=== PATIENT | male | born 1995 | race Caucasian/White ===

== ENCOUNTER 2018-05-01 10:46 | Inpatient (IN) ==
[2018-05-01 11:36] LABS: BASO# 0.03 X1000 (0.0-0.2); BASO% 0.6 % (0.0-0.8); EOS# 0.05 X1000 (0.0-0.7); HEMATOCRIT 32.9 % (42.0-52.0); HEMOGLOBIN 11.1 g/dL (14.0-18.0); LYMPH# 1.47 X1000 (1.2-3.4); LYMPH% 28.7 % (20.5-51.1); MCH 36.6 PG (27-31); MCHC 33.7 g/dL (33-37); MCV 108.6 FL (81-99); MONO# 0.53 X1000 (0.11-0.59); MONO% 10.4 % (1.7-9.3); NEUT# 3.04 X1000 (1.4-6.5); NEUT% 59.3 % (42.2-75.2); PLT 232 X1000 (130-400); RBC 3.03 XMIL (4.7-6.1); RDW 17.1 % (11.5-14.5); WBC 5.12 X1000 (4.8-10.8)
[2018-05-01 11:45] LABS: AGAP 13; ALB/GLOB RATIO 0.6; ALBUMIN 2.4 g/dL (3.5-5.0); ALKALINE PHOSPHATASE 224 U/L (32-122); BUN 5 mg/dL (8-22); CALCIUM 7.5 mg/dL (8.8-10.2); CHLORIDE 93 mmol/L (98-107); COSMO 280; CREATININE 0.3 mg/dL (0.7-1.2); ESTIMATED GFR > 60; GLUCOSE 152 mg/dL (70-104); GOT 206 U/L (10-34); GPT 57 U/L (10-44); POTASSIUM 2.8 mmol/L (3.5-5.1); SODIUM 140 mmol/L (136-145); TCO2 34 mmol/L (25-35); TOTAL BILIRUBIN 0.89 mg/dL (0.20-1.00); TOTAL PROTEIN 6.3 g/dL (6.3-8.3)
[2018-05-01] MEDS ORDERED: ZOFRAN IV ONE (13:35)
[2018-05-01] MEDS ORDERED: NS 1,000 ML IV ONE ×2 (13:35→14:39)
[2018-05-01] MEDS ORDERED: KLOR-CON PO ONE (13:54)
--- NOTE | 2018-05-01 14:37 | Diag Imaging Result Doc PS360 ---
EXAM: CHEST-PORTABLE HISTORY: couggh TECHNIQUE: Portable chest single view COMPARISON: 12/26/2017 FINDINGS: The lungs are well expanded. The heart is not enlarged. The vessels are not distended. There are no infiltrates. No effusion identified. There has been extensive surgery to the lower cervical and upper thoracic spine and there is mild scoliosis. IMPRESSION: No pneumonia midback isn't. Electronically signed by Jerardo Wilde 05/01/2018 2:35 PM
--- NOTE | 2018-05-01 14:37 | Diag Imaging Result Doc PS360 ---
EXAM: CT RENAL STONE SEARCH INDICATION: urine sediment, history of ureteral stones TECHNIQUE: This exam was performed using automated exposure control, adjustment of mA or kV according to patient size, and/or use of iterative reconstruction technique. COMPARISON: 08/01/2017 FINDINGS: There is severe diffuse hepatic steatosis. There has been a prior cholecystectomy. There is no evidence of biliary dilatation. There is extensive inflammatory stranding associated with the pancreas indicating acute pancreatitis. There is evidence of pancreatic necrosis at the tail and there is a large fluid collection measuring up to 5.8 x 3.3 cm axially associated with the tail the pancreas indicating a developing pseudocyst. An infected pseudocyst/developing pancreatic abscess cannot be excluded. There are no renal or ureteral stones and there is no hydronephrosis. The urinary bladder is nondistended and is grossly unremarkable, otherwise. There is an incidental stable fatty infiltration involving the cecum. The appendix is not identified and there may have been prior appendectomy. There are no secondary signs of appendicitis. The remainder of the GI tract is essentially unremarkable. IMPRESSION: 1.Severe acute pancreatitis with evidence of pancreatic necrosis and pseudocyst formation. An infected pseudocyst or developing abscess cannot be excluded. 2.Severe hepatic steatosis. 3.Other external/nonacute findings detailed above. Electronically signed by Real Reina 05/01/2018 2:35 PM
[2018-05-01] MEDS ORDERED: MERREM 1 GM in NS 50 ML IV ONE (14:52)
[2018-05-01 15:08] LABS: URINE SOURCE CATH
--- NOTE | 2018-05-01 15:19 | EKG Report ---
Test Performed on : 05/01/2018 11:25:13 AM Test Reason : SYNCOPE Blood Pressure : / mmHG Vent. Rate : 125 BPM Atrial Rate : 125 BPM P-R Int : 126 ms QRS Dur : 074 ms QT Int : 306 ms P-R-T Axes : 074 078 056 degrees QTc Int : 441 ms Sinus tachycardia. Otherwise normal ECG When compared with ECG of 17-APR-2018 14:10, No significant change was found Unconfirmed Result
[2018-05-01 15:23] LABS: BILIRUBIN URINE SMALL (NEGATIVE); BLOOD URINE SMALL (NEGATIVE); COLOR ORANGE; GLUCOSE URINE TRACE mg/dL (NEGATIVE); KETONE URINE NEGATIVE (NEGATIVE); LEUKOCYTES URINE MODERATE (NEGATIVE); NITRITE URINE POSITIVE (NEGATIVE); PROTEIN URINE 100 mg/dL (NEGATIVE); SP GRAVITY URINE 1.045; TURBIDITY URINE HAZY (CLEAR); UROBILINOGEN URINE 3 mg/dL (NORMAL)
[2018-05-01 15:24] LABS: UR EPITHELIAL CELLS <10 /HPF (<10); URINE BACTERIA 2+ /HPF; URINE RBC 20-40 /HPF (<10); URINE WBC TNTC /HPF (<10)
[2018-05-01 15:41] LABS: AMYLASE 17 U/L (20-200); LIPASE 19 U/L (13-60)
[2018-05-01] MEDS ORDERED: TYLENOL PO PRN (16:20)
[2018-05-01] MEDS ORDERED: MAGNESIUM SULFATE 2 GM/S.W.I. 2 GM/50 ML IVPB IV ONE (16:58)
[2018-05-01] MEDS ORDERED: ATIVAN PO PRN (17:29)
--- NOTE | 2018-05-01 17:53 | PROVIDER DOCUMENTATION ---
This chart was entered by Mady Batista Scribe, acting as scribe for Tayo Ordonez PA. HPI-General Adult - General Chief Complaint: B/P Problems Stated Complaint: HIGH BP Time Seen by Provider: 05/01/18 13:35 Source: patient, family (mother) Allergies/Adverse Reactions: Patient Allergies Allergy/AdvReac Type Severity Reaction Status Date / Time Penicillins Allergy Intermediate ITCHING Verified 04/17/18 13:45 cashews Allergy Intermediate SWELLING Uncoded 04/17/18 13:45 Home Medications: Home Medication List Medication Instructions Recorded Confirmed Last Taken Type Lorazepam [Ativan] 1 mg PO BID PRN PRN #30 tablet 08/03/17 05/01/18 05/01/18 14: 00 Rx Albuterol Sulfate [Albuterol 8.5 gm IH PRN PRN 04/17/18 05/01/18 3 Months Ago History Sulfate Hfa] ~01/17/18 Hydrocodone/Acetaminophen [[place] 1 each PO Q4H PRN PRN #30 tablet 04/18/1805/01 Unknown Rx 5-325 Tablet] Levofloxacin [Levaquin] 500 mg PO DAILY 04/18/18 05/01/18 05/01/18 13:00 History - History of Present Illness -Gen Adult Nature of Presenting Problems: 22 yowm presents to the ed with his mother. pt has been hypotensive 98/66, n/v, cough, syncope x3 and decreased oral intake. pt sts had onset of sx and is being treated for pressure ulcers at the wound clinic Location of Pain/Injury: reports: other (pressure ulcers on buttocks) Severity: reports: mild Onset/Duration: reports: 1 week ago Timing: reports: still present Context/Activities at Onset: reports: light activity Modifying Factors: improves with: nothing Associated Symptoms: reports: cough, fatigue, loss of appetite, malaise, nausea , syncope, vomiting, other (hypotensive). denies: back/neck pain, fever/chills Similar Symptoms Previously?: Yes (sts feels like past autonomic dysreflexia) Recently seen or treated by another doctor?: Yes (wound care dr) Review of Systems - Adult - REVIEW OF SYSTEMS - ADULT Constitutional: reports: fatique, weight loss, other (decreased oral intake). denies: chills, fever Eyes: reports: no symptoms reported Ears, Nose, Mouth & Throat: reports: no symptoms reported Cardiovascular: reports: syncope (x3). denies: chest pain, palpitations Respiratory: reports: see HPI, cough. denies: shortness of breath, wheezing Gastrointestinal: reports: see HPI, nausea, vomiting. denies: diarrhea Genitourinary: reports: no symptoms reported Musculoskeletal: reports: no symptoms reported Integumentary: reports: no symptoms reported Neurological: denies: dizziness/vertigo, headache/migraines, slurred speech Psychiatric: reports: no symptoms reported Endocrine: reports: no symptoms reported Hematologic/Lymphatic: reports: no symptoms reported Allergic/Immunologic: reports: no symptoms reported All Other Systems: Reviewed and Negative Past History - Adult - PAST MEDICAL HISTORY-ADULT Review of Records: reports: Old Records Reviewed, Nursing Assessment Review, Medications Reviewed, Social history reviewed & non-contributory. Major Childhood Illnesses: reports: denies history Cardiovascular: reports: denies history Respiratory: reports: asthma Gastrointestinal: reports: denies history Obstetrical/Gynecological: reports: denies history Genitourinary: reports: denies history Musculoskeletal: reports: denies history, other (paraplegic) Neurological: reports: denies history Endocrine/Immune: reports: denies history Other Conditions: reports: denies history Additional History: dysreflexia - PRIOR SURGERIES/PROCEDURES Surgical/Procedure History: reports: back/neck - PRIOR HOSPITALIZATIONS Prior Hospitalizations: reports: for similar symptoms, for other non-related - IMMUNIZATION STATUS Childhood Immunizations: See Nurse Assessment Flu Vaccine: See Nurse Assessment - FAMILY HISTORY Family History: reviewed, not pertinent - SOCIAL HISTORY Smoking: denies Substance Use: alcohol Alcohol Use Frequency: twice a week (on weekends) Number of drinks per typical drinking period:: 3-4 drinks Living Situation: family Physical Exam-General - PHYSICAL EXAM-ADULT Initial Vital Signs Reviewed: Yes - CONSTITUTIONAL General Appearance: alert, mild distress, thin. negative: appears well - EYES Eyes: PERRL/EOMI - HEAD, EARS, NOSE, MOUTH & THROAT HENMT: normal ENT inspection. negative: moist mucous membranes - NECK Neck: full range of motion, normal inspection - RESPIRATORY Respiratory: chest non-tender, lungs clear, normal breath sounds - CARDIOVASCULAR Cardiovascular: normal peripheral pulses, tachycardia (152) - GASTROINTESTINAL (ABDOMEN) Abdominal Exam: normal bowel sounds, soft - GENITOURINARY Male Genitalia: deferred, other (pt self caths/bed sores on buttocks and being tx) Rectal Exam: deferred - LYMPHATIC Lymphatic: no adenopathy - MUSCULOSKELETAL Back Exam: other (pt is parapalegic no back exam done) Extremity: normal capillary refill, pelvis stable, other (parapalegic) - SKIN Integumentary: warm/dry, pallor - NEUROLOGIC Neurologic: grossly normal - PSYCHIATRIC Psych/Mental Status: normal mood/affect, normal thought content, normal thought process, oriented x 3 Progress - PLAN OF CARE/RESULTS Progress/Plan/Lab Results: Vital Signs - 8 hr 05/01/18 10:57 Temperature 98.0 F Pulse Rate 152 H Respiratory Rate 20 Blood Pressure 98/66 O2 Sat by Pulse Oximetry 100 Laboratory Results - last 24 hr 05/01/18 05/01/18 11:00 11:00 WBC 5.12 RBC 3.03 L Hgb 11.1 L Hct 32.9 L MCV 108.6 H MCH 36.6 H MCHC 33.7 RDW Std Deviation 17.1 H Plt Count 232 MPV 9.0 Immature Gran % (Auto) 0.0 Neut % (Auto) 59.3 Lymph % (Auto) 28.7 [place] % (Auto) 10.4 H Eos % (Auto) 1.0 Baso % (Auto) 0.6 Immature Gran # (Auto) 0.00 Neut # (Auto) 3.04 Lymph # (Auto) 1.47 [place]well # (Auto) 0.53 Eos # (Auto) 0.05 Baso # (Auto) 0.03 Sodium 140 Potassium 2.8 L Chloride 93 L Carbon Dioxide 34 Anion Gap 13 BUN 5 L Creatinine 0.3 L Estimated GFR/1.73 m2 > 60 BUN/Creatinine Ratio 17 Glucose 152 H Calculated Osmolality 280 Calcium 7.5 L Total Bilirubin 0.89 AST 206 H ALT 57 H Alkaline Phosphatase 224 H Total Protein 6.3 Albumin 2.4 L Globulin 3.9 Albumin/Globulin Ratio 0.6 Orders Category Date Time Status Glucose Finger Stick [FSBS/Accucheck Result] NOW Care 05/01/18 11:31 Active Saline Loc NOW Care 05/01/18 13:35 Active CBC WITH ELECTRONIC DIFF [HEME] Stat Lab 05/01/18 11:00 Completed CMP [COMPREHENSIVE METABOLIC PANEL] [CHEM] Stat Lab 05/01/18 11:00 Completed UA NIMS W/REFLEX CULT [URINALYSIS] Stat Lab 05/01/18 13:36 Ordered 0.9% Sodium Chloride Inj [Ns] 1,000 ml Med 05/01/18 13:35 Active IV 999 mls/hr Ondansetron [Zofran] Med 05/01/18 13:35 Discontinued 4 mg IV NOW ONE Result Diagrams: 05/01/18 11:00 05/01/18 11:00 - REASSESSMENT Reassessment #1 Time Reassessed: 14:05 (pt is resting in bed) Status: unchanged Reassessment #2 Time Reassessed: 14:51 Status: unchanged Reassessment Comment: pt is still tachy Reassessment #3 Time Reassessed: 16:07 Status: improving Reassessment Comment: pt feels much better and HR is improved - EKG 1 Time of EKG reading by physician:: 15:57 EKG Read and Signed by:: Tyrone Conroy EKG Interpretation (*Must complete 3 of following elements*): Normal Rate: 107 Rhythm: sinus tachycardia Foster: normal QRS: normal AL Interval: normal ST Wave: normal - XRAY 1 XRAY: Bilateral XRAY Study: Chest (EXAM: CHEST-PORTABLE HISTORY: couggh TECHNIQUE: Portable chest single view COMPARISON: 12/26/2017 FINDINGS: The lungs are well expanded. The heart is not enlarged. The vessels are not distended. There are no infiltrates. No effusion identified. There has been extensive surgery to the lower cervical and upper thoracic spine and there is mild scoliosis. IMPRESSION: No pneumonia midback isn't. Electronically signed by Jerardo Wilde 05/01/2018 2:35 PM 05/01/18 1435 Interpreting Physician: Jerardo Wilde MD Dictated Date/Time: 05/01/18 1434 cc: Tayo Ordonez; Aguila Porter MD) - CT/MRI 1 CT Study: Kidneys (EXAM: CT RENAL STONE SEARCH INDICATION: urine sediment, history of ureteral stones TECHNIQUE: This exam was performed using automated exposure control, adjustment of mA or kV according to patient size, and/or use of iterative reconstruction technique. COMPARISON: 08/01/2017 FINDINGS: There is severe diffuse hepatic steatosis. There has been a prior cholecystectomy. There is no evidence of biliary dilatation. There is extensive inflammatory stranding associated with the pancreas indicating acute pancreatitis. There is evidence of pancreatic necrosis at the tail and there is a large fluid collection measuring up to 5.8 x 3.3 cm axially associated with the tail the pancreas indicating a developing pseudocyst. An infected pseudocyst /developing pancreatic abscess cannot be excluded. There are no renal or ureteral stones and there is no hydronephrosis. The urinary bladder is nondistended and is grossly unremarkable, otherwise. There is an incidental stable fatty infiltration involving the cecum. The appendix is not identified and there may have been prior appendectomy. There are no secondary signs of appendicitis. The remainder of the GI tract is essentially unremarkable. IMPRESSION: 1.Severe acute pancreatitis with evidence of pancreatic necrosis and pseudocyst formation. An infected pseudocyst or developing abscess cannot be excluded. 2.Severe hepatic steatosis. 3.Other external/nonacute findings detailed above. Electronically signed by Real Reina 05/01/2018 2:35 PM 05/01 1435 Interpreting Physician: Real Reina MD Dictated Date/Time: 1423 cc: Tayo Ordonez; Aguila Porter MD) - CONSULTS/PCP/HOSPITALIST Notification #1 *Consult/PCP/Hospitalist*: dr taylor Time Discussed: 14:48 Reason/Comments: phone consult Consult Disposition: Admit (start on meropenem) #2 Consult: hospitalist service Time Discussed: 15:07 Reason/Comments: pancreatitis Consult Disposition: Admit Departure - Departure Date of Disposition Decision: 05/01/18 Time of Disposition Decision: 14:56 DIAGNOSIS: Pancreatic pseudocyst, Tachycardia, Hypokalemia Acute pancreatitis Qualifiers: Pancreatitis type: alcohol induced Acute pancreatitis complication: unspecified Qualified Code(s): K85.20 - Alcohol induced acute pancreatitis without necrosis or infection Anemia Qualifiers: Anemia type: other cause Other causes of anemia: other cause, not classified Qualified Code(s): D64.89 - Other specified anemias UTI (urinary tract infection) Qualifiers: Urinary tract infection type: site unspecified Hematuria presence: without hematuria Qualified Code(s): N39.0 - Urinary tract infection, site not specified Disposition: ADMITTED INPATIENT 09 Certified Medical Emergency: Emergent Condition: Stable - Critical Care Note This patient required my direct & personal management of CC.: Yes Total Time (mins): 42 Critical Care Statement: This patient required my direct personal management to treat or rule out processes, the absence of which, could potentiallly result in sudden, clinically significant life or limb threatening deterioration. Attestation - Physician/ NEHA Attestation Patient care was provided by Advanced Practice Provider:: Yes Advanced Practice Provider:: Tayo Ordonez Advanced Practice Provider documentation review:: The Mid-level provider documentation, treatment plan and medical decision making was reviewed by the physician who agrees with all treatment and medical decision making by the MLP. The physician spent face to face time with patient:: No Advanced Practice Provider documentation review:: Supervising physician onsite and consulted in the evaluation and care of this patient. The physician did not have a face to face encounter with the patient. This chart was documented by the indicated scribe, (Mady Batista Scribe) and accurately reflects the services I performed and decisions made by me, Tayo Ordonez PA, as attested by the provider's signature.
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
[2018-05-01] MEDS: ATIVAN IV PRN (18:29)
[2018-05-01] MEDS: PROTONIX IV SCH (18:35)
[2018-05-01] MEDS: SODIUM CHLORIDE 0.9% INJ SCH (18:35)
[2018-05-01 18:36] LABS: IRON SATURATION 57 %; TIBC 100 ug/dL; TOTAL IRON 57 ug/dL (53-167); UNBOUND IRON 43 ug/dL (112-346)
[2018-05-01] MEDS: NS 1,000 ML IV SCH (18:39)
[2018-05-01 18:41] LABS: HEMOGLOBIN A1C 4.3 % (4.8-6.0)
[2018-05-01 19:33] LABS: FERRITIN 1624 ng/mL (30-400)
[2018-05-01] MEDS: LOPRESSOR IV SCH (20:21)
[2018-05-01] MEDS: POTASSIUM CHLORIDE 60 MEQ in NS 500 ML IV SCH (20:22)
[2018-05-01] MEDS: ZOFRAN IV PRN (20:23)
--- NOTE | 2018-05-01 20:56 | Diag Imaging Result Doc PS360 ---
EXAM: CT HEAD W/O CONTRAST - 05/01/2018 HISTORY: syncope; dizziness TECHNIQUE: CT head without contrast COMPARISON: None. FINDINGS: There is no evidence of intracranial hemorrhage, mass effect, midline shift, or hydrocephalus. There is no evidence of infarct, although acute infarcts may not be immediately visible. There is no evidence of skull fracture. Visualized portions of paranasal sinuses and mastoid air cells appear clear. IMPRESSION: No visible acute intracranial abnormality. No hemorrhage or mass effect. This exam was performed using automated exposure control, adjustment of mA or kV according to patient size, and/or use of iterative reconstruction technique. Electronically signed by Owen Humphreys 05/01/2018 8:54 PM
[2018-05-01] MEDS: DILAUDID IV PRN (22:21)
[2018-05-01 23:07] LABS: URINE SOURCE CATH
[2018-05-01 23:12] LABS: BILIRUBIN URINE NEGATIVE (NEGATIVE); BLOOD URINE NEGATIVE (NEGATIVE); COLOR YELLOW; GLUCOSE URINE NEGATIVE (NEGATIVE); KETONE URINE NEGATIVE (NEGATIVE); LEUKOCYTES URINE MODERATE (NEGATIVE); NITRITE URINE NEGATIVE (NEGATIVE); PROTEIN URINE NEGATIVE (NEGATIVE); SP GRAVITY URINE 1.003; TURBIDITY URINE HAZY (CLEAR); UROBILINOGEN URINE NORMAL (NORMAL)
[2018-05-01 23:13] LABS: UR EPITHELIAL CELLS >10 /HPF (<10); URINE BACTERIA NEGATIVE /HPF; URINE RBC <10 /HPF (<10); URINE WBC <10 /HPF (<10)
[2018-05-02] MEDS: ATIVAN IV PRN ×2 (00:40→16:14)
[2018-05-02] MEDS: ZOFRAN IV PRN ×2 (00:40→09:06)
[2018-05-02] MEDS: MERREM 1 GM in NS 50 ML IV SCH ×3 (00:45→16:03)
[2018-05-02] MEDS: LOPRESSOR IV SCH ×4 (02:07→22:39)
[2018-05-02] MEDS: DILAUDID IV PRN ×6 (02:07→22:39)
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
[2018-05-02] MEDS: NS 1,000 ML IV SCH ×2 (04:29→14:52)
[2018-05-02] MEDS: SODIUM CHLORIDE 0.9% INJ SCH (04:29)
[2018-05-02] MEDS: POTASSIUM CHLORIDE 60 MEQ in NS 500 ML IV SCH (04:29)
[2018-05-02] MEDS: PROTONIX IV SCH ×3 (04:29→17:39)
[2018-05-02 06:04] LABS: BASO# 0.01 X1000 (0.0-0.2); BASO% 0.2 % (0.0-0.8); EOS# 0.02 X1000 (0.0-0.7); EOS% 0.4 % (0.0-10.0); HEMATOCRIT 31.9 % (42.0-52.0); HEMOGLOBIN 10.6 g/dL (14.0-18.0); IMM GRAN# 0.02 X1000 (0.0-0.04); IMM GRAN% 0.4 % (0.0-0.5); LYMPH# 1.22 X1000 (1.2-3.4); MCH 37.1 PG (27-31); MCHC 33.2 g/dL (33-37); MCV 111.5 FL (81-99); MONO# 0.53 X1000 (0.11-0.59); MONO% 10.4 % (1.7-9.3); MPV 9.3 FL (7.4-10.4); NEUT# 3.28 X1000 (1.4-6.5); NEUT% 64.6 % (42.2-75.2); PLT 172 X1000 (130-400); RBC 2.86 XMIL (4.7-6.1); RDW 17.6 % (11.5-14.5); WBC 5.08 X1000 (4.8-10.8)
[2018-05-02 06:08] LABS: PTT 28.3 Seconds (22.3-41.8)
[2018-05-02 07:10] LABS: LYMPHS 24 % (21-51); MONO 8 % (1-9); SEGS 68 % (42-75)
--- NOTE | 2018-05-02 07:47 | GENERAL SURGERY PROGRESS NOTE ---
DATE: 05/02/2018 SUBJECTIVE: Patient seems to be doing better. He is in better spirits. OBJECTIVE: Vital Signs: Patient is currently afebrile. Heart rate in the 90s, blood pressure 115/79, O2 saturation 96%. General: No acute distress. HEENT: Normocephalic, atraumatic. Pupils equal, round, and reactive to light. Mucous membranes moist. Oropharynx benign. Neck: Supple. Trachea midline. Cardiovascular: Regular rate and rhythm. Lungs: Grossly clear. Abdomen: Difficult exam, but no distention. Extremities: Paraplegic. Skin: No signs of jaundice. Vascular: All extremities perfused. Neurologic: Paraplegic. LABORATORY: Hematocrit is 39, white blood cell count 5, and platelet count 172,000. Remainder of labs reviewed. ASSESSMENT/PLAN: A 22-year-old with severe pancreatitis with possible abscess. Severe pancreatitis. At this time, we will continue current treatment and resuscitation. We will order MRI with MRCP to evaluate his biliary tree better, and his pancreatic ducts. We will otherwise continue current treatment. cc: Rafi Jenkins MD
[2018-05-02 08:12] LABS: AGAP 13; ALB/GLOB RATIO 0.6; ALBUMIN 2.3 g/dL (3.5-5.0); ALKALINE PHOSPHATASE 255 U/L (32-122); BUN 5 mg/dL (8-22); CALCIUM 7.5 mg/dL (8.8-10.2); CHLORIDE 105 mmol/L (98-107); COSMO 284; CREATININE 0.2 mg/dL (0.7-1.2); ESTIMATED GFR > 60; GLUCOSE 89 mg/dL (70-104); GOT 292 U/L (10-34); GPT 64 U/L (10-44); MAGNESIUM 1.9 mg/dL (1.5-2.7); SODIUM 144 mmol/L (136-145); TCO2 26 mmol/L (25-35); TOTAL BILIRUBIN 2.98 mg/dL (0.20-1.00)
[2018-05-02] MEDS ORDERED: PRILOSEC PO SCH (09:00)
[2018-05-02] MEDS ORDERED: SODIUM PHOSPHATE 35 MMOL in NS 250 ML IV ONE (09:31)
--- NOTE | 2018-05-02 09:46 | Diag Imaging Result Doc PS360 ---
EXAM: MRI MRCP (ABD W/O CONTRAST) 05/02/2018 HISTORY: Evaluate biliary tree and pancreatitis/pseudocyst TECHNIQUE: Coronal SSFSE, T2 fiesta, axial T1 in and out of phase, SSFSE, T2 axial, and thick slab MRCP. COMMENT: There are no previous MRI studies. The study is compared with the previous CT examination of 05/01/2018. There is no evidence of biliary dilatation. The pancreatic duct is not well demonstrated however the word is seen that does not appear to be particularly distended. There is marked peripancreatic inflammatory change and edema. This was also demonstrated on the CT examination. The liver is profoundly hypodense on CT and there is some scarring in the left hepatic lobe seen on both the CT and MR studies consistent with cirrhosis. The spleen is not enlarged. There is a fluid collection adjacent to the pancreatic body and tail which is irregular in shape and there is internal debris which is consistent with necrosis and possible hemorrhage. This is also supported by findings on the noncontrast CT which demonstrated high density material dependently in the abnormal fluid collections both posterior to the fundus of the stomach and posterior to the gastric antrum. IMPRESSION: No evidence of biliary obstruction. Abnormal fluid collections consistent with acute pancreatitis with necrosis and probable hemorrhage. The extent of necrosis cannot be fully evaluated without intravenous contrast either with CT or MRI. Electronically signed by John Howe 05/02/2018 9:44 AM
--- NOTE | 2018-05-02 09:58 | EKG Report ---
Test Performed on : 05/01/2018 3:57:45 PM Test Reason : ED. No order in [place] Blood Pressure : / mmHG Vent. Rate : 107 BPM Atrial Rate : 107 BPM P-R Int : 126 ms QRS Dur : 070 ms QT Int : 360 ms P-R-T Axes : 057 069 048 degrees QTc Int : 480 ms Sinus tachycardia. Otherwise normal ECG When compared with ECG of 01-MAY-2018 11:25, (Unconfirmed) No significant change was found Unconfirmed Result
--- NOTE | 2018-05-02 11:37 | PROGRESS NOTE ---
DATE: 05/02/2018 SUBJECTIVE: Patient reports feeling fine, less abdominal pain. No nausea, no vomiting. Patient wants to try something liquid. OBJECTIVE: Vital Signs: Temperature 97.1, heart rate 96, respiratory rate 12, blood pressure 106/85, O2 saturation 95% on room air. General: This is a chronically ill- looking 22-year-old male, lying in bed, in no acute distress. Cardiovascular: S1, S2 heard. No murmurs, gallops, or rubs. Regular rate and rhythm. Respiratory: Clear bilaterally to auscultation. No work of breathing or using accessory muscles. Abdomen: Soft. A little bit tender to palpation in the left upper quadrant. Bowel sounds present but hypoactive. No splenomegaly noted. Extremities: Patient moves 4 extremities without any difficulty, but lower extremities are completely paralyzed. He has spontaneous muscle contraction location. In the level of the back, he has some sacral decubitus ulcers. Neurological: Patient is alert and oriented x3, moves 4 extremities. LABORATORY DATA: White cell count is 5.08, hemoglobin 10.6, hematocrit 31.9, platelets 172,000 with an INR 1.0. Normal BMP. Phosphorus 2.1, calcium 7.5, magnesium 1.9. Total bilirubin is 2.98 with AST of 292, ALT 64, alkaline phosphatase 255. ASSESSMENT AND PLAN: 1. Severe acute pancreatitis with evidence of pancreatic necrosis. Considering his history of the cholecystectomy and also known alcohol consumption with normal triglyceride, and elevation of bilirubin and transaminase, Dr. Jenkins decided to an MRCP, which basically showed no evidence of biliary obstruction which showed the abnormal fluid collection consistent with acute pancreatitis with necrosis and possible hemorrhage. Unfortunately the exam was not done with intravenous contrast. We will continue with same medical management, in this case, IV fluids and pain medication. He is not dehydrated anymore. His blood pressure is stable, so I think at this point, this patient can be sent to a regular floor today. 2. Hypokalemia, resolved. 3. Hypomagnesemia, resolved. 4. Nausea and vomiting, resolved. Patient wants to try some fluids for now. 5. Urinary tract infection. At this point, considering that this patient, because he is paralyzed, he is not able to feel any burning on urination. We have ordered a urine culture that basically is positive for gram-negative rods. At this point, the patient is on meropenem for necrosis of the pancreas that is going to cover also urinary tract infection. We will continue with the same management. 6. Severe hepatic steatosis. Aware. We will continue to monitor comprehensive metabolic panel. 7. Anemia of chronic disease. Iron is borderline low. We will continue to monitor. 8. Two sacral decubitus ulcers. Wound Care has been consulted. 9. Disposition. I think this patient is much more stable, so will transfer this patient out to ICU today. cc: Crow Epps MD MTDD
--- NOTE | 2018-05-02 23:41 | ECHO REPORT ---
ORDER DATE: 05/02/2018 INDICATIONS: Syncope. FINDINGS: 1. Right atrium appears normal in size at 3.3 cm. 2. Trace tricuspid regurgitation. RV systolic pressure of 36. 3. Normal RV size and systolic function. 4. No significant pulmonic insufficiency. 5. Normal left atrial size at 2.7 cm. 6. No mitral valve prolapse. Trace mitral regurgitation. 7. Normal LV size, end-diastolic dimension of 4.2 cm. Normal wall thicknesses with a posterior and interventricular septal wall thickness 1.0 and 0.8 cm. Normal LV systolic function. Estimated EF is 60% with normal wall motion. 8. Aortic valve opens well. No evidence of stenosis or insufficiency. 9. Aorta appears normal in visualized segments. 10. No pericardial effusion seen. cc: MD Felipa Reddy CRNP
[2018-05-03] MEDS: MERREM 1 GM in NS 50 ML IV SCH ×4 (00:35→23:53)
[2018-05-03] MEDS: NS 1,000 ML IV SCH ×4 (00:39→23:53)
[2018-05-03] MEDS: DILAUDID IV PRN ×4 (02:37→15:48)
[2018-05-03] MEDS: LOPRESSOR IV SCH ×4 (02:38→20:15)
[2018-05-03] MEDS: PROTONIX IV SCH ×2 (06:15→17:26)
[2018-05-03 07:25] LABS: BASO# 0.02 X1000 (0.0-0.2); BASO% 0.5 % (0.0-0.8); EOS# 0.06 X1000 (0.0-0.7); EOS% 1.4 % (0.0-10.0); HEMATOCRIT 31.6 % (42.0-52.0); HEMOGLOBIN 10.3 g/dL (14.0-18.0); LYMPH# 1.11 X1000 (1.2-3.4); LYMPH% 25.5 % (20.5-51.1); MCH 37.6 PG (27-31); MCHC 32.6 g/dL (33-37); MCV 115.3 FL (81-99); MONO# 0.35 X1000 (0.11-0.59); MPV 9.9 FL (7.4-10.4); NEUT# 2.82 X1000 (1.4-6.5); NEUT% 64.6 % (42.2-75.2); PLT 182 X1000 (130-400); RBC 2.74 XMIL (4.7-6.1); RDW 17.6 % (11.5-14.5); WBC 4.36 X1000 (4.8-10.8)
[2018-05-03 07:33] LABS: AGAP 13; ALB/GLOB RATIO 0.6; ALKALINE PHOSPHATASE 211 U/L (32-122); BUN 3 mg/dL (8-22); CALCIUM 7.8 mg/dL (8.8-10.2); CHLORIDE 104 mmol/L (98-107); COSMO 275; CREATININE 0.2 mg/dL (0.7-1.2); ESTIMATED GFR > 60; GLUCOSE 74 mg/dL (70-104); GOT 130 U/L (10-34); GPT 45 U/L (10-44); SODIUM 140 mmol/L (136-145); TCO2 23 mmol/L (25-35); TOTAL BILIRUBIN 3.12 mg/dL (0.20-1.00); TOTAL PROTEIN 5.1 g/dL (6.3-8.3)
--- NOTE | 2018-05-03 13:03 | GENERAL SURGERY PROGRESS NOTE ---
DATE: 05/03/2018 TIME: 9:39. SUBJECTIVE: Mr. Rao says he feels much better today. He is having less pain. He is taking liquids satisfactorily. Denies nausea. OBJECTIVE: He is afebrile. Heart rate 110. Blood pressure 117/71. His abdomen is soft, and he denies any significant tenderness. DIAGNOSTICS/LABS: White count 4400, hemoglobin 10.3. Chemistry is fine. Total bilirubin is up to 3.1, AST down to 130, ALT 45, alkaline phosphatase 211. MRCP did not show any biliary obstruction. ASSESSMENT: In view of his continued improvement, we will continue with conservative therapy and anticipate continued improvement. We will consider advancing his diet by tomorrow if he continues to do satisfactorily. cc: Vick Cee MD
--- NOTE | 2018-05-03 13:41 | PROGRESS NOTE ---
DATE: 05/03/2018 SUBJECTIVE: The patient reports feeling fine. Denies any other complaints. OBJECTIVE: Vital Signs: Temperature 98.4, heart rate 102, respiratory rate 20 , blood pressure 106/67 O2 sat 100% on room air. General: This is a 22-year-old, male lying in bed in no acute distress. Cardiovascular: S1, S2 heard. No murmurs, gallops or rubs. Regular rate and rhythm. Respiratory: Clear bilaterally to auscultation. No work of breathing or using accessory muscles. Abdomen: Soft. A little bit tender to palpation in the left lower quadrant. Bowel sounds present. No splenomegaly. Extremities: Patient moves upper extremities without difficulty, but lower extremities are completely paralyzed. He has some spontaneous muscle contractions. In the back he has a decubitus ulcer. Neurologic: Patient is alert oriented x 3. Moves 4 extremities. LABORATORY DATA: Reviewed. ASSESSMENT AND PLAN: 1. Severe acute pancreatitis with evidence of pancreatic necrosis. Patient has been evaluated by Dr. Jenkins and MRCP was done with results as above. At this point, we are going to continue with the same management. 2. Hypokalemia, resolved. 3. Hypomagnesemia, resolved. 4. UTI. Sensitive to many medications, but considering that this patient is an meropenem we will continue with the same management. 5. Anemia of chronic disease. I will continue to monitor CBC. 7. Disposition: At this point, we will continue to monitor this patient closely. cc: Crow Epps MD MTDD
[2018-05-03] MEDS: ATIVAN IV PRN (20:09)
[2018-05-03] MEDS: MORPHINE IV PRN (23:52)
[2018-05-04] MEDS: LOPRESSOR IV SCH ×4 (01:24→20:55)
[2018-05-04] MEDS: PROTONIX IV SCH ×3 (06:03→17:30)
[2018-05-04] MEDS: SODIUM CHLORIDE 0.9% INJ SCH ×2 (06:03→16:21)
[2018-05-04 07:08] LABS: BASO# 0.01 X1000 (0.0-0.2); BASO% 0.2 % (0.0-0.8); EOS# 0.05 X1000 (0.0-0.7); EOS% 1.1 % (0.0-10.0); HEMATOCRIT 28.1 % (42.0-52.0); HEMOGLOBIN 9.4 g/dL (14.0-18.0); IMM GRAN# 0.03 X1000 (0.0-0.04); IMM GRAN% 0.7 % (0.0-0.5); LYMPH# 1.38 X1000 (1.2-3.4); MCH 36.9 PG (27-31); MCHC 33.5 g/dL (33-37); MCV 110.2 FL (81-99); MONO# 0.46 X1000 (0.11-0.59); MONO% 10.3 % (1.7-9.3); NEUT# 2.52 X1000 (1.4-6.5); NEUT% 56.7 % (42.2-75.2); PLT 177 X1000 (130-400); RBC 2.55 XMIL (4.7-6.1); RDW 17.3 % (11.5-14.5); WBC 4.45 X1000 (4.8-10.8)
[2018-05-04 07:14] LABS: ALB/GLOB RATIO 0.6; ALBUMIN 1.7 g/dL (3.5-5.0); ALKALINE PHOSPHATASE 187 U/L (32-122); BUN 2 mg/dL (8-22); CALCIUM 7.1 mg/dL (8.8-10.2); CREATININE 0.1 mg/dL (0.7-1.2); ESTIMATED GFR > 60; GLUCOSE 89 mg/dL (70-104); GOT 73 U/L (10-34); GPT 32 U/L (10-44); PHOSPHORUS 1.8 mg/dL (2.7-4.5); TCO2 26 mmol/L (25-35); TOTAL BILIRUBIN 3.11 mg/dL (0.20-1.00); TOTAL PROTEIN 4.6 g/dL (6.3-8.3)
--- NOTE | 2018-05-04 08:14 | GENERAL SURGERY PROGRESS NOTE ---
DATE: 05/04/2018 TIME: 7:35 in the morning. SUBJECTIVE: Mr. Rao is afebrile, heart rate 100, blood pressure 97/67. He tolerated liquids okay yesterday. White count 4400, hemoglobin 9.4, total bilirubin 3.1, AST is down to 73, ALT down to 32, alkaline phosphatase down to 187. ASSESSMENT: He seems to be resolving his pancreatitis. I will advance him to a low-fat diet. cc: Vick Cee MD
[2018-05-04 08:18] LABS: CHLORIDE 102 mmol/L (98-107); POTASSIUM 3.5 mmol/L (3.5-5.1); SODIUM 137 mmol/L (136-145)
[2018-05-04 08:22] LABS: AGAP 9; COSMO 269
[2018-05-04] MEDS: MERREM 1 GM in NS 50 ML IV SCH ×2 (08:58→16:21)
[2018-05-04] MEDS ORDERED: SODIUM PHOSPHATE 35 MMOL in NS 250 ML IV ONE (11:25)
[2018-05-04] MEDS: MORPHINE IV PRN ×3 (12:06→20:59)
[2018-05-04] MEDS: NS 1,000 ML IV SCH ×3 (12:08→20:58)
--- NOTE | 2018-05-04 12:30 | PROGRESS NOTE ---
DATE: 05/04/2018 SUBJECTIVE: Patient reports feeling fine. Denies any abdominal pain. He did tolerate a low-fat diet very well. OBJECTIVE: Vital Signs: Temperature 98.4 degrees, heart rate 110, respiratory rate 20, blood pressure 117/71, O2 saturation 100% on room air. General: This is a 22-year-old male lying in bed, in no acute distress. Cardiovascular: S1, S2 heard. No murmurs, gallops, or rubs. Regular rate and rhythm. Respiratory: Clear bilaterally to auscultation. No work of breathing or using accessory muscles. Abdomen: Soft, a little bit distended. Mildly tender to palpation in the epigastric area. No organomegaly noted. Extremities: The patient moves upper extremities without difficulty, but lower extremities are completely paralyzed. There are some spontaneous muscle contractions noted. In the back there is a decubitus ulcer. Neurological: Patient is alert and oriented x3. LABORATORY DATA: Reviewed. ASSESSMENT AND PLAN: 1. Severe, acute pancreatitis with evidence of pancreatic necrosis. Patient is on Merrem. The patient is stable general surgery continues to follow this patient. They have order a low-fat diet for this patient which he did tolerate good. I think we can advance his diet as tolerated and from our standpoint, the patient can be discharged whenever he is cleared by General Surgery. 2. Hypokalemia, resolved. 3. Hypomagnesemia, resolved. 4. Urinary tract infection, sensitive to many medications, but because he is on meropenem, we will continue with the same management. We will deescalate antibiotics whenever we do not need to provide any more antibiotics for this pancreatitis. 5. Anemia of chronic disease. We will continue to monitor CBC. Hemoglobin is stable. 6. Disposition. At this point, following the lead from General Surgery. I will discharge this patient whenever he is cleared by them. cc: Crow Epps MD
[2018-05-04] MEDS: NEUTRA-PHOS PO SCH ×3 (13:45→20:59)
[2018-05-05] MEDS: MORPHINE IV PRN ×5 (00:27→22:15)
[2018-05-05] MEDS: MERREM 1 GM in NS 50 ML IV SCH ×3 (00:27→16:59)
[2018-05-05] MEDS: LOPRESSOR IV SCH ×4 (01:39→22:16)
--- NOTE | 2018-05-05 06:29 | GENERAL SURGERY PROGRESS NOTE ---
DATE: 05/05/2018 SUBJECTIVE: The patient seems to be clinically doing better. OBJECTIVE: Vital Signs: The patient is currently afebrile. His vital signs are stable. General Examination: No acute distress. HEENT: Normocephalic, atraumatic. Pupils equal, round, reactive to light. Mucous membranes moist. Oropharynx benign. Neck: Supple. Trachea midline. Cardiovascular: Regular rate and rhythm. Lungs: Grossly clear. Abdomen: Difficult to examine secondary to the patient's paraplegia but no peritoneal signs. Extremities: Paraplegic. Neurologic: Paraplegic. Skin: Without obvious jaundice at this point. Vascular: All extremities perfused. Laboratory: None this morning as of yet. ASSESSMENT AND PLAN: A 22-year-old with paraplegia, now with necrotizing pancreatitis. Necrotizing pancreatitis. At this time, the patient seems to be clinically doing better, although his bilirubin has stayed above 3. He had an MRI that did not show any obstruction. He may have some degree of a hepatic injury. Unsure exactly what is going on. His ferritin level is elevated and iron saturation binding level from his labs have remained slightly elevated. In this context, we will get gastroenterology to see the patient for an evaluation and get their opinion. Otherwise, I think the patient is close to being able to be discharged, barring his bilirubin improves. cc: Rafi Jenkins MD
[2018-05-05 06:50] LABS: BASO# 0.02 X1000 (0.0-0.2); BASO% 0.4 % (0.0-0.8); HEMATOCRIT 26.7 % (42.0-52.0); IMM GRAN# 0.03 X1000 (0.0-0.04); IMM GRAN% 0.6 % (0.0-0.5); LYMPH# 1.31 X1000 (1.2-3.4); LYMPH% 26.3 % (20.5-51.1); MCH 37.2 PG (27-31); MCHC 33.7 g/dL (33-37); MCV 110.3 FL (81-99); MONO# 0.59 X1000 (0.11-0.59); MONO% 11.8 % (1.7-9.3); MPV 9.9 FL (7.4-10.4); NEUT# 2.94 X1000 (1.4-6.5); NEUT% 58.9 % (42.2-75.2); PLT 198 X1000 (130-400); RBC 2.42 XMIL (4.7-6.1); RDW 17.6 % (11.5-14.5); WBC 4.99 X1000 (4.8-10.8)
[2018-05-05 07:20] LABS: ESTIMATED GFR > 60
[2018-05-05 07:35] LABS: AGAP 9; ALB/GLOB RATIO 0.6; ALBUMIN 1.6 g/dL (3.5-5.0); ALKALINE PHOSPHATASE 184 U/L (32-122); BUN 2 mg/dL (8-22); CALCIUM 7.2 mg/dL (8.8-10.2); CHLORIDE 103 mmol/L (98-107); COSMO 272; CREATININE 0.2 mg/dL (0.7-1.2); GLUCOSE 96 mg/dL (70-104); GOT 60 U/L (10-34); GPT 26 U/L (10-44); POTASSIUM 3.3 mmol/L (3.5-5.1); SODIUM 138 mmol/L (136-145); TCO2 26 mmol/L (25-35); TOTAL BILIRUBIN 3.36 mg/dL (0.20-1.00); TOTAL PROTEIN 4.4 g/dL (6.3-8.3)
[2018-05-05] MEDS: PROTONIX IV SCH ×2 (07:42→16:58)
[2018-05-05] MEDS: NS 1,000 ML IV SCH ×2 (07:59→09:36)
[2018-05-05] MEDS: NEUTRA-PHOS PO SCH ×5 (09:35→22:14)
[2018-05-05] MEDS: ZOFRAN IV PRN (10:25)
--- NOTE | 2018-05-05 12:06 | PROGRESS NOTE ---
DATE: 05/05/2018 SUBJECTIVE: The patient reports feeling fine. Denies any abdominal pain. The patient is eating okay. OBJECTIVE: Vital Signs: Temperature 98.3 degrees, heart rate 101, respiratory 16, blood pressure 105/70, O2 saturation 96% on room air. General: This is a 22-year-old male lying in bed, in no acute distress. Cardiovascular: S1, S2 heard. No murmurs, gallops, or rubs. Regular rate and rhythm. Respiratory: Clear bilaterally to auscultation. No work of breathing. No using accessory muscles. Abdomen: Soft, a little bit tender to palpation in the epigastric area. No organomegaly noted. Extremity: The patient moves both upper extremities without problem, but lower extremities are completely paralyzed. Some spontaneous muscle contractures noted. Decubitus ulcers noted in the back, in the lumbar area. Neurological: Patient is alert and oriented x3. LABORATORY DATA: White cell count 4.99, with hemoglobin 9.0, hematocrit 26.7 days. Potassium 3.3. Total bilirubin 3.36 and on admission 4 days ago, it was 0.8, with AST 60, ALT 26, alkaline phosphatase 184. Albumin 1.6. ASSESSMENT AND PLAN: 1. Acute pancreatitis with evidence of pancreatic necrosis. The patient clinically is stable, not complaining of any abdominal pain. He is receiving Merrem. Today is day #4 of treatment. We will continue with same management. The patient is tolerating a healthy heart diet. We will continue with the same management. 2. Malnutrition. Patient is receiving Ensure on top of his meals 3 times per day. Albumin is very low. 3. Urinary tract infection. While this patient is on meropenem, we are not going to change or add any antibiotics. 4. Anemia of chronic disease, stable. We will continue to monitor complete blood count. 5. Disposition. At this point, from a surgical standpoint, he is getting better. Unfortunately, his bilirubin is getting worse, so we have placed a consult for Dr. Mckeon, from GI, for this elevation in bilirubin. We will continue to monitor. cc: Crow Epps MD
[2018-05-05] MEDS: SODIUM CHLORIDE 0.9% INJ SCH (16:58)
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
[2018-05-06] MEDS: MORPHINE IV PRN ×6 (05:01→23:14)
[2018-05-06] MEDS: PROTONIX IV SCH ×2 (05:01→16:50)
[2018-05-06] MEDS: SODIUM CHLORIDE 0.9% INJ SCH ×2 (05:01→16:50)
[2018-05-06] MEDS: LOPRESSOR IV SCH ×4 (05:03→23:46)
--- NOTE | 2018-05-06 05:47 | GENERAL SURGERY PROGRESS NOTE ---
DATE: 05/06/2018 SUBJECTIVE: The patient doing okay. Reviewed notes from Dr. Marcos, appreciate the consultation. Additional labs have been drawn. OBJECTIVE: Vital Signs: The patient is currently afebrile. His vital signs are stable. General: No acute distress. HEENT: Normocephalic, atraumatic. Pupils are equal, round, and reactive to light. Mucous membranes are moist. Oropharynx is benign. Neck: Supple. Trachea midline. Cardiovascular: Regular rate and rhythm. Lungs: Grossly clear. Abdomen: Difficult to obtain examine secondary to the patient's paraplegia, but no real distention. Extremities: Paraplegic. Neurologic: Paraplegic. Skin: Without signs of jaundice. Vascular: All extremities perfused. LABORATORY: None this morning as of yet. ASSESSMENT: The patient is a 22-year-old paraplegic, now with necrotizing pancreatitis. PLAN: Necrotizing pancreatitis. At this time I appreciate GIs input. We will continue current treatment. Once okay from GI, we will consider discharge. He will need outpatient CT scan to evaluate changes. No immediate plans for surgical intervention at this point. The etiology is still unclear, so we will continue to monitor him. cc: Rafi Jenkins MD
[2018-05-06 06:31] LABS: AGAP 7; ALB/GLOB RATIO 0.6; ALBUMIN 1.7 g/dL (3.5-5.0); ALKALINE PHOSPHATASE 187 U/L (32-122); BUN 2 mg/dL (8-22); CALCIUM 7.4 mg/dL (8.8-10.2); CHLORIDE 98 mmol/L (98-107); COSMO 264; CREATININE 0.2 mg/dL (0.7-1.2); ESTIMATED GFR > 60; GLUCOSE 99 mg/dL (70-104); GOT 58 U/L (10-34); GPT 20 U/L (10-44); POTASSIUM 3.3 mmol/L (3.5-5.1); SODIUM 134 mmol/L (136-145); TCO2 29 mmol/L (25-35); TOTAL BILIRUBIN 3.08 mg/dL (0.20-1.00); TOTAL PROTEIN 4.4 g/dL (6.3-8.3)
[2018-05-06 06:42] LABS: BASO# 0.01 X1000 (0.0-0.2); BASO% 0.3 % (0.0-0.8); EOS# 0.04 X1000 (0.0-0.7); EOS% 1.2 % (0.0-10.0); HEMOGLOBIN 8.7 g/dL (14.0-18.0); IMM GRAN# 0.03 X1000 (0.0-0.04); IMM GRAN% 0.9 % (0.0-0.5); LYMPH# 0.94 X1000 (1.2-3.4); LYMPH% 28.1 % (20.5-51.1); MCHC 33.5 g/dL (33-37); MCV 110.6 FL (81-99); MONO# 0.39 X1000 (0.11-0.59); MONO% 11.7 % (1.7-9.3); MPV 9.6 FL (7.4-10.4); NEUT# 1.93 X1000 (1.4-6.5); NEUT% 57.8 % (42.2-75.2); PLT 210 X1000 (130-400); RBC 2.35 XMIL (4.7-6.1); RDW 17.5 % (11.5-14.5); WBC 3.34 X1000 (4.8-10.8)
[2018-05-06] MEDS: NS 1,000 ML IV SCH ×3 (06:45→09:02)
[2018-05-06] MEDS: MERREM 1 GM in NS 50 ML IV SCH ×5 (08:25→23:46)
[2018-05-06] MEDS: NEUTRA-PHOS PO SCH ×3 (08:26→16:45)
[2018-05-06] MEDS: ATIVAN IV PRN (09:01)
[2018-05-06] MEDS: SANTYL OINT TOP SCH (11:00)
--- NOTE | 2018-05-06 16:36 | PROGRESS NOTE ---
DATE: 05/06/2018 SUBJECTIVE: Patient reports feeling fine, denies any more abdominal pain. OBJECTIVE: Vitals: Temperature 98.1 degrees, heart rate 98, respiratory rate 18, blood pressure 116/80, O2 saturation 99% on room air. General: This is a 22-year-old, male lying in bed in no acute distress. HEENT: Head is normocephalic, atraumatic. Neck: No JVD noted. Cardiovascular: S1, S2 heard. No murmurs, gallops, or rubs. Regular rate and rhythm. Respiratory: Clear bilaterally to auscultation. No work of breathing or using accessory muscles. Abdomen: Soft, a little bit tender to palpation in the epigastric area but no organomegaly noted. Extremities: Patient moves both upper extremities without any problem but lower extremities are completely paralyzed with some muscle contractions noted, decubitus ulcer noted in the back in the lumbar area. Neurologic: Patient alert, oriented x3.. LABORATORY DATA: Reviewed. ASSESSMENT AND PLAN: 1. 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 Will continue with same management. 2. Hyperbilirubinemia. GI has been consulted for this problem actually bilirubin has been trending down already. They have ordered many tests for him so at this point will wait for them to see when this patient is going in to be ready to be discharged from their standpoint. 3. Malnutrition. Patient is receiving Ensure on top of his 3 meals, will continue to monitor. 4. Anemia of chronic disease stable, will continue to monitor CBC. 5. Disposition. I think this patient is doing clinically much better, will discharge this patient whenever okay with GI. cc: Crow Epps MD [facility]
--- NOTE | 2018-05-06 18:23 | PROGRESS NOTE ---
DATE: 05/06/2018 SUBJECTIVE: The patient was sitting up in the bed eating lunch. He states he is not able to eat much, but he is tolerating a diet. He did have episode of vomiting after breakfast. He reports some back pain. He is requiring IV pain medication. OBJECTIVE: Vital Signs: Temperature 98.1, pulse 98, respirations 18, blood pressure 116/80. General: Patient is awake, alert, no acute distress. LABORATORY: Hematology: WBC 3.34, hemoglobin 8.7, hematocrit 26.0, MCV 110.6, platelets 210,000. Chemistry: Sodium 134, potassium 3.3, chloride 98, CO2 29, BUN 2, creatinine 0.2, glucose 99, calcium 7.4, phosphorus 2.8, magnesium 1.9, total bilirubin 3.08. AST 58, ALT 20, alkaline phosphatase 187. MRCP that showed no evidence of biliary obstruction. There was abnormal fluid collection consistent with acute pancreatitis with necrosis. ASSESSMENT AND PLAN: 1. Pancreatitis. Continue current management. 2. Elevated bilirubin. Patient has had elevated ferritin and iron saturation. HFE gene test has been ordered, awaiting results. This is a send off, so it may take several days. 3. Pain requiring IV pain medication. Would recommend transitioning over to oral pain medication to anticipate discharge. 4. As far as GI is concerned, once the patient is tolerating his meals and is able to transition to p.o. pain medication he can be discharged. I have discussed this case with Dr. Mckeon. For further evaluation of his pancreatitis, would recommend endoscopic ultrasound. This referral can be done as an outpatient. Recommend patient follow up with us as an outpatient. Further plans will be made according to his progress. Will follow up on results of HFE gene test. 5. I have discussed this case with Dr. Mckeon. Dictated by LEFTY Matthews for Tesfaye Mckeon MD cc: LEFTY Zuñiga MD [facility]
[2018-05-07] MEDS: MORPHINE IV PRN ×3 (02:00→16:37)
[2018-05-07] MEDS: ATIVAN IV PRN ×3 (02:43→09:53)
[2018-05-07] MEDS: PROTONIX IV SCH ×2 (05:32→15:36)
[2018-05-07] MEDS: SODIUM CHLORIDE 0.9% INJ SCH ×2 (05:32→15:36)
[2018-05-07] MEDS: LOPRESSOR IV SCH ×2 (05:32→10:01)
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
[2018-05-07 07:02] LABS: BASO# 0.04 X1000 (0.0-0.2); BASO% 0.6 % (0.0-0.8); EOS# 0.07 X1000 (0.0-0.7); HEMATOCRIT 27.7 % (42.0-52.0); HEMOGLOBIN 9.3 g/dL (14.0-18.0); LYMPH# 1.54 X1000 (1.2-3.4); LYMPH% 22.6 % (20.5-51.1); MCH 37.8 PG (27-31); MCHC 33.6 g/dL (33-37); MCV 112.6 FL (81-99); MONO# 0.78 X1000 (0.11-0.59); MONO% 11.5 % (1.7-9.3); MPV 9.6 FL (7.4-10.4); NEUT# 4.38 X1000 (1.4-6.5); NEUT% 64.3 % (42.2-75.2); PLT 240 X1000 (130-400); RBC 2.46 XMIL (4.7-6.1); RDW 17.8 % (11.5-14.5); WBC 6.81 X1000 (4.8-10.8)
[2018-05-07 08:04] LABS: AGAP 5; ALB/GLOB RATIO 0.6; ALBUMIN 1.9 g/dL (3.5-5.0); ALKALINE PHOSPHATASE 216 U/L (32-122); BUN 5 mg/dL (8-22); CALCIUM 8.1 mg/dL (8.8-10.2); CHLORIDE 98 mmol/L (98-107); COSMO 264; CREATININE 0.3 mg/dL (0.7-1.2); ESTIMATED GFR > 60; GLUCOSE 98 mg/dL (70-104); GOT 66 U/L (10-34); GPT 20 U/L (10-44); POTASSIUM 3.8 mmol/L (3.5-5.1); SODIUM 133 mmol/L (136-145); TCO2 30 mmol/L (25-35); TOTAL BILIRUBIN 2.74 mg/dL (0.20-1.00)
[2018-05-07] MEDS: MERREM 1 GM in NS 50 ML IV SCH ×2 (08:21→15:35)
[2018-05-07] MEDS: NEUTRA-PHOS PO SCH ×3 (08:22→14:46)
[2018-05-07] MEDS: SANTYL OINT TOP SCH (08:58)
[2018-05-07] MEDS ORDERED: NS 250 ML ONE (09:15)
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
[2018-05-07 12:11] LABS: INR 0.88; PROTIME 12.6 Seconds (11.0-16.0)
--- NOTE | 2018-05-07 15:17 | PROGRESS NOTE ---
DATE: 05/07/2018 SUBJECTIVE: Patient is resting, in no acute distress. I have spoken with the mother who is at the bedside. Patient has had consultation with Dr. Grier with Infectious Disease for PICC line placement and antibiotic management as an outpatient once discharged. Today, liver function tests are total bilirubin 2.74, AST 66, ALT 20, alkaline phosphatase 216. HFE gene analysis is still pending. OBJECTIVE: Vital Signs: Temperature 98.1 degrees, pulse 100, respirations 16, blood pressure 102/64. General: Patient is asleep with no acute distress. LABORATORY DATA: Hematology: WBC 6.81, hemoglobin 9.3, hematocrit 27.7, MCV 112.6, platelets 240,000. Chemistry: Sodium 133, potassium 3.8, chloride 98, CO2 30, BUN 5, creatinine 0.3, glucose 98, total bilirubin 2.74 AST 66, ALT 28, alkaline phosphatase 216. ASSESSMENT AND PLAN: 1. Necrotizing pancreatitis, on antibiotics. He is having a peripherally inserted central catheter line placed and will be on outpatient antibiotics. 2. Elevated bilirubin is improving. HFE gene has been ordered. Waiting on the results. Continue to follow and further plans to be made according to his progress. Dr. Mckeon has recommended he have an endoscopic ultrasound for further evaluation due to the pancreatitis. Would recommend [facility] referral as an outpatient. We will start that referral process. I have recommended patient follow up with us in the office in 2 to 3 weeks once discharged. Mother voices understanding of this plan. I have discussed this case with Dr. Mckeon. Dictated by LEFTY Matthews for Tesfaye Mckeon MD cc: LEFTY Zuñiga MD
[2018-05-07 16:09] VITALS: BP 110/68
[2018-05-07] MEDS: ZOFRAN IV PRN (16:37)
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
== END 2018-05-07 17:54 | disposition home or self-care (01) | DRG 871 ==
LOC: ED 10:46 → EDIPHOLD 10:47 → ICU 20:48 → 4N 05-02 14:13
PROVIDERS: ATTEND Internal Medicine
CPT/HCPCS: 36569; 70450; 71010; 71045; 74176; 74181; 80053; 80061; 81001; 81256; 82150; 82270; 82607; 82728; 82746; 82948; 83036; 83540; 83550; 83605; 83690; 83721; 83735; 84100; 84439; 84443; 84484; 85025; 85610; 85730; 86850; 86900; 86901; 87040; 87077; 87088; 87186; 93005; 93306; 94761; 94799; 96361; 96365; 96366; 96367; 96375; 96376; 99285; A9270; C8924; C9113; J1170; J2060; J2185; J2270; J2405; J3475; J3480; J7030; J7040; J7050; Q9957; S0164; XXXXX

== ENCOUNTER 2019-02-10 14:11 | Inpatient (IN) ==
[2019-02-11] MEDS ORDERED: KLOR-CON PO SCH (10:15)
[2019-02-11] MEDS: NORCO-5 PO PRN ×4 (10:34→23:12)
[2019-02-11] MEDS: FERROUS SULFATE PO SCH ×2 (10:34→23:08)
[2019-02-11] MEDS: MICRO-K PO SCH (10:34)
[2019-02-11] MEDS: ELIQUIS PO SCH ×2 (10:34→23:08)
[2019-02-11] MEDS: PROAMATINE PO SCH ×2 (10:34→23:08)
[2019-02-11] MEDS: SANTYL OINT TOP SCH (14:33)
[2019-02-11] MEDS: ZOFRAN PO SCH (23:08)
[2019-02-12] MEDS: NORCO-5 PO PRN ×4 (03:24→20:29)
[2019-02-12 05:44] LABS: BASO# 0.04 X1000 (0.0-0.2); BASO% 0.3 % (0.0-0.8); EOS# 0.08 X1000 (0.0-0.7); EOS% 0.6 % (0.0-10.0); HEMATOCRIT 41.8 % (42.0-52.0); HEMOGLOBIN 12.7 g/dL (14.0-18.0); IMM GRAN# 0.12 X1000 (0.0-0.04); IMM GRAN% 0.9 % (0.0-0.5); LYMPH# 1.76 X1000 (1.2-3.4); LYMPH% 12.8 % (20.5-51.1); MCH 26.8 PG (27-31); MCHC 30.4 g/dL (33-37); MCV 88.2 FL (81-99); MONO# 0.43 X1000 (0.11-0.59); MONO% 3.1 % (1.7-9.3); MPV 8.8 FL (7.4-10.4); NEUT# 11.37 X1000 (1.4-6.5); NEUT% 82.3 % (42.2-75.2); PLT 450 X1000 (130-400); RBC 4.74 XMIL (4.7-6.1); RDW 17.8 % (11.5-14.5)
[2019-02-12 06:04] LABS: AGAP 15; BUN 24 mg/dL (8-22); CALCIUM 9.5 mg/dL (8.8-10.2); CHLORIDE 94 mmol/L (98-107); COSMO 274; CREATININE 0.6 mg/dL (0.7-1.2); ESTIMATED GFR > 60; GLUCOSE 171 mg/dL (70-104); POTASSIUM 4.8 mmol/L (3.5-5.1); SODIUM 133 mmol/L (136-145); TCO2 24 mmol/L (25-35)
[2019-02-12] MEDS: PROTONIX PO SCH (06:20)
[2019-02-12] MEDS: ELIQUIS PO SCH ×2 (08:26→20:29)
[2019-02-12] MEDS: ZOFRAN PO SCH ×2 (08:27→20:29)
[2019-02-12] MEDS: PROAMATINE PO SCH ×2 (08:27→20:30)
[2019-02-12] MEDS: FERROUS SULFATE PO SCH ×2 (08:28→20:30)
[2019-02-12] MEDS: MICRO-K PO SCH (08:28)
[2019-02-12] MEDS: SANTYL OINT TOP SCH (10:30)
[2019-02-13] MEDS: NORCO-5 PO PRN ×4 (00:37→22:45)
[2019-02-13] MEDS: PROTONIX PO SCH (06:56)
[2019-02-13] MEDS: ZOFRAN PO SCH ×2 (08:39→22:45)
[2019-02-13] MEDS: ELIQUIS PO SCH ×2 (08:39→22:45)
[2019-02-13] MEDS: PROAMATINE PO SCH ×2 (08:40→22:45)
[2019-02-13] MEDS: MICRO-K PO SCH (08:40)
[2019-02-13] MEDS: FERROUS SULFATE PO SCH ×2 (08:40→22:45)
[2019-02-13] MEDS ORDERED: THERA M PLUS PO SCH (09:00)
[2019-02-13] MEDS: SANTYL OINT TOP SCH (11:49)
[2019-02-14] MEDS: NORCO-5 PO PRN ×3 (03:26→17:32)
[2019-02-14] MEDS: ELIQUIS PO SCH ×2 (06:21→20:19)
[2019-02-14] MEDS: FERROUS SULFATE PO SCH ×2 (06:21→20:19)
[2019-02-14] MEDS: PROAMATINE PO SCH ×2 (06:22→20:19)
[2019-02-14] MEDS: PROTONIX PO SCH (06:22)
[2019-02-14] MEDS: MICRO-K PO SCH (06:22)
[2019-02-14] MEDS: ZOFRAN PO SCH ×2 (06:22→20:18)
[2019-02-14] MEDS ORDERED: DULCOLAX PR ONE (12:21)
[2019-02-14] MEDS: SANTYL OINT TOP SCH (19:40)
[2019-02-15] MEDS: NORCO-5 PO PRN ×4 (00:34→18:30)
[2019-02-15] MEDS ORDERED: THERA M PLUS PO SCH (06:00)
[2019-02-15] MEDS: ELIQUIS PO SCH ×2 (06:10→20:07)
[2019-02-15] MEDS: PROTONIX PO SCH (06:10)
[2019-02-15] MEDS: ZOFRAN PO SCH ×2 (06:10→20:07)
[2019-02-15] MEDS: FERROUS SULFATE PO SCH ×2 (06:10→20:07)
[2019-02-15] MEDS: PROAMATINE PO SCH ×2 (06:10→20:07)
[2019-02-15] MEDS: MICRO-K PO SCH (06:10)
[2019-02-15] MEDS ORDERED: DULCOLAX PR ONE (08:41)
[2019-02-15] MEDS: SANTYL OINT TOP SCH (11:38)
[2019-02-15] MEDS ORDERED: CITRATE OF MAGNESIA PO ONE (19:02)
[2019-02-16] MEDS: NORCO-5 PO PRN ×3 (02:26→12:20)
[2019-02-16] MEDS: MICRO-K PO SCH (05:28)
[2019-02-16] MEDS: ZOFRAN PO SCH (05:28)
[2019-02-16] MEDS: ELIQUIS PO SCH (05:28)
[2019-02-16] MEDS: FERROUS SULFATE PO SCH (05:28)
[2019-02-16] MEDS: PROTONIX PO SCH (05:28)
[2019-02-16] MEDS: PROAMATINE PO SCH (05:28)
[2019-02-16] MEDS: SANTYL OINT TOP SCH (08:14)
[2019-02-16 12:09] VITALS: BP 102/66
== END 2019-02-16 15:46 ==
LOC: DIRADM 14:11 → 4N 16:06
PROVIDERS: ADMIT Surgery; ATTEND Surgery